=== PATIENT | male | born 1985 | race Two or more races ===

== ENCOUNTER 2016-04-22 21:02 | Emergency (ER) | payer OTHER ==
[~2016-04-22] VITALS: Ht 190.5 cm; Wt 131.5 kg
[2016-04-22] MEDS ORDERED: KETOROLAC 30 MG/ML VIAL (J1885) IM ONE (21:45)
[2016-04-22] MEDS ORDERED: diazePAM 5 MG TAB PO ONE (21:45)
[2016-04-23 00:07] VITALS: BP 124/84
[2016-04-23] MEDS ORDERED: NAPR500T PO (00:07)
[2016-04-23] MEDS ORDERED: VALI5TAB PO (00:07)
== END 2016-04-23 00:26 | disposition home or self-care (01) ==
LOC: M ED 22:50
DX: S39.012A Strain of muscle, fascia and tendon of lower back, initial encounter (principal); X58.XXXA Exposure to other specified factors, initial encounter; Y92.9 Unspecified place or not applicable; Y93.9 Activity, unspecified; Y99.9 Unspecified external cause status; F17.200 Nicotine dependence, unspecified, uncomplicated; Z79.899 Other long term (current) drug therapy
CPT/HCPCS: 96372; 99282; J1885